=== PATIENT | male | born 1975 | race Caucasian/White ===

== ENCOUNTER 2019-04-30 19:13 | Emergency (ER) | payer BC ==
[2019-04-30] MEDS ORDERED: LIDOCAINE 1% INJ 10MG/ML (20 ML MDV) SQ ONE (20:28)
--- NOTE | 2019-04-30 21:38 | ED ---
Wound/Laceration HPI - General Chief Complaint: Wound/Laceration Stated Complaint: laceration - left arm Time Seen by Provider: 04/30/19 19:33 Source: patient Mode of arrival: ambulatory Limitations: no limitations - History of Present Illness Initial Comments: Patient is a 44-year-old male presenting to the emergency Department with complaints of a laceration to his left forearm prior to arrival. Patient states he was using his chain saw when it kicked back and he sustained lacerations to his left forearm. Patient does admit to being on Plavix. Patient states the bleeding is minimal and under control at this time. He is able to move his arm and fingers as normal. Patient states his last tetanus vaccine is not known. Patient has no other complaints at this time. Upon arrival to ER, vital signs are stable, afebrile. - Related Data Previous Rx's Medication Instructions Recorded Sulfamethox-Tmp 800-160Mg [Bactrim 1 each PO BID 1 Days #2 tab 04/30/19 Ds] Allergies Allergy/AdvReac Type Severity Reaction Status Date / Time Iodinated Contrast- Oral and Allergy Rash/Hives Verified 04/30/19 19:26 IV Dye Penicillins Allergy Rash/Hives Verified 04/30/19 19:26 Review of Systems ROS Statement: Those systems with pertinent positive or pertinent negative responses have been documented in the HPI. ROS Other: All systems not noted in ROS Statement are negative. Past Medical History Past Medical History: Hyperlipidemia, Hypertension History of Any Multi-Drug Resistant Organisms: None Reported Past Surgical History: Heart Catheterization With Stent, Orthopedic Surgery Additional Past Surgical History / Comment(s): Left foot sx. Past Psychological History: No Psychological Hx Reported Smoking Status: Former smoker Past Alcohol Use History: Daily Past Drug Use History: None Reported General Exam - General Exam Comments Initial Comments: GENERAL: Well-appearing, well-nourished and in no acute distress. HEAD: Atraumatic, normocephalic. EYES: Pupils equal round and reactive to light, extraocular movements intact, sclera anicteric, conjunctiva are normal. ENT: TMs normal, nares patent, oropharynx clear without exudates. Moist mucous membranes. NECK: Normal range of motion, supple without lymphadenopathy or JVD. LUNGS: Breath sounds clear to auscultation bilaterally and equal. No wheezes rales or rhonchi. HEART: Regular rate and rhythm without murmurs, rubs or gallops. ABDOMEN: Soft, nontender, normoactive bowel sounds. No guarding, no rebound. No masses appreciated. : Deferred EXTREMITIES: Normal range of motion, no pitting or edema. No clubbing or cyanosis. Patient has full range of motion of the left wrist and fingers. Neurovascular intact. NEUROLOGICAL: Cranial nerves II through XII grossly intact. Normal speech, normal gait. PSYCH: Normal mood, normal affect. SKIN: Warm, Dry, normal turgor. Patient has multiple laceration wounds to his left distal forearm, palmar aspect. Wounds only involve the first layer. Minimal bleeding at this time. There are 3 separate wounds present all next each other. One wound approximately 1 cm, second wound approximately 2-1/2 cm, third wound is irregular shaped and approximately 4 cm. Limitations: no limitations Course Vital Signs 04/30/19 04/30/19 19:22 22:22 Temperature 98.0 F 98 F Pulse Rate 102 H 98 Respiratory 20 18 Rate Blood Pressure 147/57 136/52 O2 Sat by Pulse 94 L 100 Oximetry Procedures - Laceration Laceration #1 Consent Obtained: verbal consent Indication: laceration Site: upper extremity (Left distal forearm, palmar aspect) Size (cm): 0 (7.5cm) Description: flap, irregular Depth: simple, single layer Anesthetic Used: lidocaine 1% Anesthesia Technique: local infiltration Amount (mls): 8 Pre-repair: irrigated extensively Type of Sutures: nylon Size of Sutures: 4-0 Number of Sutures: 27 Technique: simple, interrupted Patient Tolerated Procedure: well Additional Comments: Patient's wound involved 3 separate areas that were very close to each other. A total of approximately 7-1/2 cm. Medical Decision Making - Medical Decision Making Patient is a 44-year-old male presenting with a laceration wound to his left distal forearm prior to arrival. Patient states his chainsaw kicked back and hit him in the arm. Patient is on blood thinners. On exam bleeding is minimal at this time. Patient has 3 separate wounds that are irregular shaped and very close to each other in his left distal forearm. Patient's wound was irrigated with 1 L of saline. Patient's wounds were then closed with 27, 4-0 sutures. Wound edges approximated well. There are no open areas. Topical antibiotic was applied and wound was covered. Patient will be given Bactrim for prophylactic purposes. Patient tolerated procedure well. Patient's tetanus vaccine was updated today. Patient is stable for discharge at this time. Patient will have sutures removed in approximately 10-12 days. Return parameters were discussed with the patient and he verbalized understanding. Case discussed with Dr. Arredondo. Disposition Clinical Impression: Laceration of left forearm Disposition: HOME SELF-CARE Condition: Stable Instructions (If sedation given, give patient instructions): Care For Your Stitches (ED), Laceration (ED) Additional Instructions: Please return to the Emergency Department if symptoms worsen or any other concerns. Sutures need to be removed in 10-12 days. Prescriptions: Sulfamethox-Tmp 800-160Mg [Bactrim Ds] 1 each PO BID 1 Days #2 tab Is patient prescribed a controlled substance at d/c from ED?: No Referrals: Nonstaff,Physician [Primary Care Provider] - 1-2 days
[2019-04-30] MEDS ORDERED: DIPH,PERTUS(ACELL)TETVAC-LF 0.5 ML VIAL IM ONE (21:43)
[2019-04-30 22:24] VITALS: BP 136/52; PULSE 98; RESP 18; TEMP 98
== END 2019-04-30 22:19 | disposition home or self-care (01) ==
LOC: EC 19:13
DX: S51.812A Laceration without foreign body of left forearm, initial encounter (principal); Z23 Encounter for immunization; Z79.02 Long term (current) use of antithrombotics/antiplatelets; Z88.0 Allergy status to penicillin; Z91.041 Radiographic dye allergy status; Z87.891 Personal history of nicotine dependence; Z95.5 Presence of coronary angioplasty implant and graft; W31.2XXA Contact with powered woodworking and forming machines, initial encounter; Y92.009 Unspecified place in unspecified non-institutional (private) residence as the place of occurrence of the external cause
CPT/HCPCS: 90715; 99282; 12002; 90471; J2001

== ENCOUNTER 2019-05-20 17:25 | Emergency (ER) | payer BC ==
[2019-05-20 17:32] VITALS: BP 150/90; PULSE 80; RESP 20; TEMP 97.5
--- NOTE | 2019-05-20 18:33 | ED ---
General Adult HPI - General Chief complaint: Recheck/Abnormal Lab/Rx Stated complaint: LEFT ARM LAC, STITCHES BROKEN OPEN Time Seen by Provider: 05/20/19 18:04 Source: patient, RN notes reviewed, old records reviewed Mode of arrival: ambulatory Limitations: no limitations - History of Present Illness Initial comments: 44-year-old male patient past history significant for left forearm laceration repair on 04/30/19 presents to ED with chief complaint of wound check. Patient reports that he had a laceration caused by a chainsaw which was repaired in the emergency department. Patient reports that on Thursday he had the stitches removed. Patient reports that today a small portion of the wound opened. Patient denies any systemic symptoms of infection. Denies any other complaints at this time. Systemic: Pt denies fatigue, fever/chills, rash. Pt denies weakness, night sweats, weight loss. Neuro: Pt denies headache, visual disturbances, syncope or pre-syncope. HEENT: Pt denies ocular discharge or irritation, otalgia, rhinorrhea, pharyngitis or notable lymphadenopathy. Cardiopulmonary: Pt denies chest pain, SOB, heart palpitations, dyspnea on e xertion. Abdominal/GI: Pt denies abdominal pain, n/v/d. : Pt denies dysuria, burning w/ urination, frequency/urgency. Denies new onset urinary or bowel incontinence. MSK: Pt denies myalgia, loss of strength or function in extremities. Neuro: Pt denies new onset weakness, paresthesias. - Related Data Previous Rx's Medication Instructions Recorded Sulfamethox-Tmp 800-160Mg [Bactrim 1 each PO BID 1 Days #2 tab 04/30/19 Ds] Sulfamethox-Tmp 800-160Mg [Bactrim 1 tab PO Q12HR #20 tab 05/20/19 DS 800-160 mg] Allergies Allergy/AdvReac Type Severity Reaction Status Date / Time Iodinated Contrast Media Allergy Rash/Hives Verified 05/20/19 17:31 [Iodinated Contrast- Oral and IV Dye] Penicillins Allergy Rash/Hives Verified 05/20/19 17:31 Review of Systems ROS Statement: Those systems with pertinent positive or pertinent negative responses have been documented in the HPI. ROS Other: All systems not noted in ROS Statement are negative. Past Medical History Past Medical History: Hyperlipidemia, Hypertension History of Any Multi-Drug Resistant Organisms: None Reported Past Surgical History: Heart Catheterization With Stent, Orthopedic Surgery Additional Past Surgical History / Comment(s): Left foot sx. Past Psychological History: No Psychological Hx Reported Smoking Status: Former smoker Past Alcohol Use History: Daily Past Drug Use History: None Reported General Exam - General Exam Comments Initial Comments: Constitutional: NAD, AOX3, Pt has pleasant affect. HEENT: NC/AT, trachea midline, neck supple, no lymphadenopathy. Posterior pharynx non erythematous, without exudates. External ears appear normal, without discharge. Mucous membranes moist. Eyes PERRLA, EOM intact. There is no scleral icterus. No pallor noted. Cardiopulmonary: RRR, no murmurs, rubs or gallops, no JVD noted. Lungs CTAB in anterior and posterior villalta. No peripheral edema. Abdominal exam: Abdomen soft and non-distended. Abdomen non-tender to palpation in all 4 quadrants. Bowel sounds active in LLQ. No hepatosplenomegaly. No ecchymosis Neuro: CN II-XII grossly intact. No nuchal rigidity. No raccon eyes, no alcantara sign, no hemotympanum. No cervical spinal tenderness. MSK: Healing laceration at left forearm region with approximately 1 cm area of dehiscence. Small amount of clear fluid. No fluctuance. No erythema. No streaking. Neurovascularly intact. No posterior calf tenderness bilaterally, homans sign negative bilaterally. Posterior tibialis and radial pulse +2 bilaterally. Sensation intact in upper and lower extremities. Full active ROM in upper and lower extremities, 5/5 stregnth. Limitations: no limitations Course Vital Signs 05/20/19 17:29 Temperature 97.5 F L Pulse Rate 80 Respiratory 20 Rate Blood Pressure 150/90 O2 Sat by Pulse 99 Oximetry Medical Decision Making - Medical Decision Making 44-year-old male patient past history significant for left forearm laceration repair on 04/30/19 presents to ED with chief complaint of wound check. Patient reports that he had a laceration caused by a chainsaw which was repaired in the emergency department. Patient reports that on Thursday he had the stitches removed. Patient reports that today a small portion of the wound opened. Patient denies any systemic symptoms of infection. Denies any other complaints at this time. Patient vital signs stable, afebrile. Physical exam displayed: Healing laceration at left forearm region with approximately 1 cm area of dehiscence. Small amount of clear fluid. No fluctuance. No erythema. No streaking. Neurovascularly intact. Patient started on Bactrim, has allergies to PCN. Wound bandaged. Patient will be discharged with strict return precautions and primary care follow-up on Thursday. Case discussed and patient seen by Dr. Thornton. Disposition Clinical Impression: Encounter for re-check of laceration wound Disposition: HOME SELF-CARE Condition: Stable Instructions (If sedation given, give patient instructions): Wound Dehiscence (ED) Additional Instructions: Patient to adhere to previously discussed treatment plan and will take medication(s) as directed. Patient to follow up with PCP in 1-2 days. Patient to return to ED if symptoms do not improve. Keep wound covered and dry. Take antibiotics as prescribed. Please monitor for signs and symptoms of infection including: redness, warmth, drainage, discharge. Please return to ED if these signs or symptoms occur, new signs or symptoms develop or if condition worsens in anyway. Prescriptions: Sulfamethox-Tmp 800-160Mg [Bactrim DS 800-160 mg] 1 tab PO Q12HR #20 tab Is patient prescribed a controlled substance at d/c from ED?: No Referrals: Nonstaff,Physician [Primary Care Provider] - 1-2 days
[2019-05-20] MEDS: SULFAMETH-TMP DS STARTER PACK 2 TAB BTL PO STA ×2 (18:47→18:52)
== END 2019-05-20 19:04 | disposition home or self-care (01) ==
LOC: EC 17:25
DX: Z48.01 Encounter for change or removal of surgical wound dressing (principal); T81.30XA Disruption of wound, unspecified, initial encounter; Z88.0 Allergy status to penicillin; Z91.041 Radiographic dye allergy status; Z87.891 Personal history of nicotine dependence; Z95.5 Presence of coronary angioplasty implant and graft; W31.2XXA Contact with powered woodworking and forming machines, initial encounter
CPT/HCPCS: 87070; 87205; 99283